=== PATIENT | female | born 1970 | race Caucasian/White ===

== ENCOUNTER 2017-10-26 07:48 | Outpatient (CLI) | payer OTHER ==
--- NOTE | 2017-10-26 19:07 | MRI Report ---
DATE OF SERVICE: 10/26/2017 MRI BILATERAL BREASTS WITH AND WITHOUT CONTRAST: 10/26/2017 CLINICAL INDICATION: BRCA positive patient, MRI surveillance. COMPARISON: Outside mammograms, most recently 12/16/2016. TECHNIQUE: Using a dedicated breast coil, axial precontrast STIR, T1, dynamic postcontrast axial 3-D images, axial 3-D high resolution images, and postcontrast diffusion weighted images were obtained. Gadavist 7.5 mL was administered intravenously. Post-processing with dynamic contrast enhancement analysis and multiplanar reformations were performed with Pearl's Premium. FINDINGS: Bilateral subpectoral saline implants are in place. The breasts demonstrate moderate background parenchymal enhancement bilaterally. RIGHT BREAST: No suspicious mass or region of abnormal enhancement is identified. Right axillary lymph nodes are morphologically normal. LEFT BREAST: Incidental cysts are noted in the subareolar region. No suspicious mass or region of abnormal enhancement is appreciated. Left axillary lymph nodes are morphologically normal. IMPRESSION: Benign findings. RECOMMENDATIONS: Continue annual MRI and mammographic surveillance in this high risk patient. BIRADS category 2 benign findings. The patient has been instructed to obtain results from Dr. Sanchez in 5 business days. COMMENT: Breast MRI is a highly sensitive examination, and has a cancer detection threshold down to approximately 5 mm; however, it only has moderate specificity. Although breast MRI has a high negative predictive value, appropriate clinical and mammographic followup are always necessary. MRI may miss less angiogenic tumor; therefore, it should not be used to avoid a biopsy which is otherwise clinically indicated. Normal appearing lymph nodes may contain microscopic tumor. Due to prone positioning, the described location of findings may differ from other modalities. TD: 10/26/2017 20:07
== END 2017-10-26 07:49 | disposition home or self-care (01) ==
LOC: DI 07:48
DX: Z12.31 Encounter for screening mammogram for malignant neoplasm of breast (principal); Z15.01 Genetic susceptibility to malignant neoplasm of breast
CPT/HCPCS: 77059; A9585